=== PATIENT | female | born 1980 | race Caucasian/White ===

== ENCOUNTER 2016-10-23 11:39 | Emergency (ER) | payer MEDICAID ==
[~2016-10-23] VITALS: Wt 81.0 kg
[~2016-10-23 11:39] MED LIST: CIPR500T4 PO; DICY10CA60 PO; METR500T PO; ONDA4TAB14 PO; RANI150T9 PO
[2016-10-23] MEDS ORDERED: METHYLPREDNISOLONE 125 MG INJ IM ONE (13:00)
[2016-10-23] MEDS ORDERED: FAMOTIDINE 20 MG TAB PO ONE (13:00)
[2016-10-23] MEDS ORDERED: DIPHENHYDRAMINE 25 MG CAP PO ONE (13:00)
[2016-10-23] MEDS ORDERED: PRED20TA PO (13:46)
[2016-10-23] MEDS ORDERED: BEN25 PO (13:46)
--- NOTE | 2016-10-23 14:20 | ERD ---
ER Documentation Chief Complaint Date/Time DATE: 10/23/16 TIME: 14:19 Chief Complaint RASH X4 DAYS, ITCHING, NO SOB HPI 35 year-old female patient with no significant past medical history presents to the ED complaining of a rash that started 4 days ago. States that it has been itching but denies knowing the cause. States that she has been scratching. States that it comes and goes. Denies any use of soaps, detergents, creams. Denies any exposure to pets or insects. Denies any abdominal pain, nausea, vomiting, diarrhea, shortness of breath, painful rash. Denies any shortness of breath, wheezing, lip swelling, tongue swelling. Denies others having the same rash. ROS All systems reviewed and are negative except as per history of present illness. Medications Home Meds Active Scripts Diphenhydramine Hcl* (Benadryl*) 25 Mg Cap, 25 MG PO Q6, #30 CAP Prov:ARGENIS PEREZ PA-C 10/23/16 Prednisone* (Prednisone*) 20 Mg Tab, 40 MG PO DAILY for 4 Days, TAB Prov:ARGENIS PEREZ PA-C 10/23/16 Ranitidine Hcl* (Zantac*) 150 Mg Tablet, 150 MG PO BID Y for EPIGASTRIC PAIN, # 30 TAB Prov:LI RAMSAY PA-C 02/29/16 Ondansetron (Ondansetron Odt) 4 Mg Tab.rapdis, 4 MG PO Q6H Y for NAUSEA AND/OR VOMITING, #10 TAB Prov:ROXY CASTILLO 02/13/16 Dicyclomine Hcl* (Bentyl*) 10 Mg Capsule, 10 MG PO QID, #20 CAP Prov:ROXY CASTILLO SMichael 02/13/16 Metronidazole* (Flagyl*) 500 Mg Tablet, 500 MG PO TID for 7 Days, TAB Prov:ROXY CASTILLO 02/13/16 Ciprofloxacin Hcl* (Ciprofloxacin Hcl*) 500 Mg Tablet, 500 MG PO BID for 7 Days , TAB Prov:ROXY CASTILLO S. 02/13/16 Allergies Allergies: Coded Allergies: No Known Allergy (Unverified , 02/13/16) PMhx/Soc History of Surgery: Yes (CHOLECYSTECTOMY 2009) Anesthesia Reaction: No Hx Neurological Disorder: No Hx Respiratory Disorders: No Hx Cardiac Disorders: No Hx Psychiatric Problems: No Hx Miscellaneous Medical Probl: No Hx Alcohol Use: Yes Hx Substance Use: No Hx Tobacco Use: No Physical Exam Vitals Vital Signs Date Time Temp Pulse Resp B/P Pulse Ox O2 Delivery O2 Flow Rate FiO2 10/23/16 11:49 97.3 82 17 109/71 98 Physical Exam Const: [id number], well-nourished. In no acute distress. Head: Atraumatic, normocephalic Eyes: Normal Conjunctiva without injection. No purulent discharge. PERRL. EOMI ENT: Normal external ear. Ear canal without erythema. Tympanic membrane pearly meraz without effusion or bulging. Nasal canal clear with normal turbinates. Moist oropharynx without tonsillar exudates. Non-erythematous pharynx. Uvula midline. No drooling. No trismus. Neck: Full range of motion. No meningismus. No cervical lymphadenopathy. Resp: Clear to auscultation bilaterally. No wheezing, rhonchi, rales, or crackles. No accessory muscle use. No retractions. Cardio: Regular rate and rhythm. No murmurs, rubs or gallops. Abd: Soft, non tender, non distended. Normal bowel sounds. No palpable masses. No rebound tenderness. No guarding. Skin: No petechiae, purpura. Diffuse erythematous blanching wheals noted diffusely all over the body. No fluctuance. No induration. No bleeding noted. Back: No midline tenderness. No CVA tenderness. Ext: No cyanosis, or edema. Neur: Awake and alert. Psych: Normal Mood and Affect Results 24 hrs Current Medications Medications (Trade) Dose Ordered Sig/Marlene Route PRN Reason Start Time Stop Time Status Last Admin Dose Admin Methylprednisolone Sodium Succinate (Solu-Medrol) 125 mg ONCE ONCE IM 10/23/16 13:00 10/23/16 13:01 DC 10/23/16 12:55 Diphenhydramine HCl (Benadryl) 25 mg ONCE ONCE PO 10/23/16 13:00 10/23/16 13:01 DC 10/23/16 12:55 Famotidine (Pepcid) 20 mg ONCE ONCE PO 10/23/16 13:00 10/23/16 13:01 DC 5/4/17 12:55 Procedures/MDM This is a 35-year-old female patient with no significant past medical history presents to the ED complaining of a rash (urticaria) likely due to allergic reaction. Patient is afebrile nontoxic appearing. Patient has normal vital signs. Patient was treated here in the ED with Solu-Medrol, Benadryl, Famotidine with improvement of her symptoms. No lip swelling or tongue swelling. Low suspicion for anaphylaxis. Other differential diagnosis considered include but is not limited to allergic contact dermatitis, insect bites, eczema, tinea infection, psoriasis. Low suspicion for scabies, SJS/TEN, erythema multiforme, sepsis, cellulitis, necrotizing fascitis, gangrene, meningococcemia or other emergent conditions. Discharge medications: Prednisone, Benadryl Follow up with primary care physician in 1-2 days. Instructed patient to return to the ED sooner for any worsening symptoms. Patient's questions were answered. Patient understood and agreed with discharge plan. Patient discharged stable. Departure Diagnosis: Primary Impression: Rash and other nonspecific skin eruption Condition: Stable Patient Instructions: Allergic Reaction, Other (General), Hives Referrals: [facility] Usted se oseguera hecho un examen mdico de control que le indica que no est en shankar condicin que requiera tratamiento urgente en el Departamento de Emergencia. Un estudio ms profundo y el tratamiento de bello condicin pueden esperar sin ningn riesgo hasta que usted sea atendida/o en el consultorio de bello mdico o shankar cl yordy. Es responsabilidad suya arreglar shankar laura para el seguimiento del asha. MANEJO DE CONDICIONES NO URGENTES EN EL FUTURO 1) Si usted tiene un mdico de atencin primaria: Usted debera llamar a bello mdico de atencin primaria antes de venir al departamento de emergencia. Despus de las horas de consultorio, bello doctor o bello asociado/a est disponible por telfono. El mdico o enfermero de kat en el servicio telefnico puede asesorarle por milton medio para atender el problema, o asha contrario se puede programar shankar laura. 2) Si usted no tiene un mdico de atencin primaria: Llame al mdico o clnica de referencia que aparece abajo rehana las horas de consultorio para hacer shankar laura para que le vean. CLINICAS: [facility] [phone] [facility] [phone] [facility] [phone] [facility] [place] [phone] [facility]. [place] [address] [phone] [facility] [phone] [address] [facility]. [facility] () Usted se oseguera hecho un examen mdico de control que le indica que no est en shankar condicin que requiera tratamiento urgente en el Departamento de Emergencia. Un estudio ms profundo y el tratamiento de bello condicin pueden esperar sin ningn riesgo hasta que usted sea atendida/o en el consultorio de bello mdico o shankar cl yordy. Es responsabilidad suya arreglar shankar laura para el seguimiento del asha. MANEJO DE CONDICIONES NO URGENTES EN EL FUTURO 1) Si usted tiene un mdico de atencin primaria: Usted debera llamar a bello mdico de atencin primaria antes de venir al departamento de emergencia. Despus de las horas de consultorio, bello doctor o bello asociado/a est disponible por telfono. El mdico o enfermero de kat en el servicio telefnico puede asesorarle por milton medio para atender el problema, o asha contrario se puede programar shankar laura. 2) Si usted no tiene un mdico de atencin primaria: Llame al mdico o condado institucions de referencia que aparece abajo rehana las horas de consultorio para hacer shankar laura para que le vean. SI USTED NO PUEDE PAGAR PARA GRACIE UN MEDICO puede ir a: [facility] [address] [place] [address] [facility] [address] [place] [address] [facility] [address] [place] [address] [address] [facility] [address] [place] [place], [place] [id number] Additional Instructions: Llame al doctor MAANA y keaton shankar LAURA PARA DENTRO DE 1-2 MANUEL para las pruebas de alergia.Dgale a la secretaria que nosotros le instruimos hacer esta laura.Avise o llame si bello condicin se empeora antes de la laura. Regresa aqui si peor o no mejor. ARGENIS PEREZ PA-C October 23, 2016 14:20
== END 2016-10-23 13:45 | disposition home or self-care (01) ==
LOC: FTE 11:39
DX: R21 Rash and other nonspecific skin eruption (principal)
CPT/HCPCS: J2930; Z7610; 96372

== ENCOUNTER 2018-12-17 11:35 | Emergency (ER) | payer MEDICAID ==
[~2018-12-17] VITALS: Ht 162.6 cm; Wt 79.6 kg
[~2018-12-17 11:35] MED LIST changes: +BEN25 PO; +DICY10CA40 PO; -DICY10CA60 PO; +PRED20TA PO; +RANI150T35 PO; -RANI150T9 PO
[2018-12-17 11:44] VITALS: Ht 162.6 cm; Wt 79.6 kg
[2018-12-17] MEDS ORDERED: SOD CHLORIDE 0.9% 500 ML IV STA (12:15)
[2018-12-17] MEDS ORDERED: KETOROLAC 30 MG INJ IV STA (12:15)
[2018-12-17] MEDS ORDERED: BENZONATATE 100 MG CAP PO ONE (12:30)
[2018-12-17] MEDS ORDERED: BENZ-6 PO (13:41)
[2018-12-17] MEDS ORDERED: AZIT250T PO (13:41)
--- NOTE | 2018-12-17 14:40 | ERD ---
ER Documentation Chief Complaint Chief Complaint COUGH ANCHEST PAIN THAT RADIATED TO LEFT ARM WITH NUMBNESS AND PAIN IN EYES HPI This is a very pleasant 38-year-old female has no past medical history. She presents to the emergency department complaining of a productive cough for the past 48 hours. She indicates that she has had intermittent numbness and tingling of her left arm. Contrary to the triage sheet she denies any chest pain or pressure. She had no fevers no shaking no chills. She feels mild shortness of breath is exacerbated whenever she coughs. She does not feel shortness of breath with exertion. She has no swelling of her lower extremities. She denies any calf tenderness. She had no fevers or shaking no chills. She denies any weight loss or night sweats. She had no recent travel or prolonged immobilization and no recent hospitalizations. ROS All systems reviewed and are negative except as per history of present illness. Medications Home Meds Active Scripts Benzonatate* (Tessalon Perle*) 100 Mg Capsule, 100 MG PO Q8H PRN for COUGH, #20 CAP Prov:GRIFFIN SILVERIO MD 12/17/18 Azithromycin* (Zithromax*) 250 Mg Tablet, 250 MG PO .ZPACK DIRECTED, #6 TAB TAKE 500 MG (2 TABS) THE FIRST DAY THEN 250 MG (1 TAB) DAYS 2-5 Prov:GRIFFIN SILVERIO MD 12/17/18 Discontinued Scripts Diphenhydramine Hcl* (Benadryl*) 25 Mg Cap, 25 MG PO Q6, #30 CAP Prov:ARGENIS PEREZ PA-C 10/23/16 Prednisone* (Prednisone*) 20 Mg Tab, 40 MG PO DAILY for 4 Days, TAB Prov:ARGENIS PEREZ PA-C 10/23/16 Ranitidine Hcl* (Zantac*) 150 Mg Tablet, 150 MG PO BID PRN for EPIGASTRIC PAIN, #30 TAB Prov:LI RAMSAY PA-C 02/29/16 Ondansetron (Ondansetron Odt) 4 Mg Tab.rapdis, 4 MG PO Q6H PRN for NAUSEA AND/OR VOMITING, #10 TAB Prov:ROXY CASTILLO 02/13/16 Dicyclomine HCl (Dicyclomine HCl) 10 Mg Capsule, 10 MG PO QID, #20 CAP Prov:ROXY CASTILLO 02/13/16 Metronidazole* (Flagyl*) 500 Mg Tablet, 500 MG PO TID for 7 Days, TAB Prov:ROXY CASTILLO. 02/13/16 Ciprofloxacin Hcl* (Ciprofloxacin Hcl*) 500 Mg Tablet, 500 MG PO BID for 7 Days, TAB Prov:ROXY CASTILLO. 02/13/16 Allergies Allergies: Coded Allergies: No Known Allergy (Unverified , 12/17/18) PMhx/Soc History of Surgery: Yes (CHOLECYSTECTOMY 2009) Anesthesia Reaction: No Hx Neurological Disorder: No Hx Respiratory Disorders: No Hx Cardiac Disorders: No Hx Psychiatric Problems: No Hx Miscellaneous Medical Probl: No Hx Alcohol Use: Yes Hx Substance Use: No Hx Tobacco Use: No Smoking Status: Never smoker Physical Exam Vitals Vital Signs Date Temp Pulse Resp B/P (MAP) Pulse Ox O2 O2 Flow FiO2 Time Delivery Rate 12/17/18 98.4 76 16 129/70 97 11:44 (89) Physical Exam Constitutional:Well-developed. Well-nourished. HEENT:Normocephalic. Atraumatic.Pupils were equal round reactive to light. Moist mucous membranes.No tonsillar exudates. Neck: No nuchal rigidity. No lymphadenopathy. No posterior cervical spine tenderness or step-offs. Respiratory: Not using accessory muscles of respiration.Lungs were clear to auscultation bilaterally. No rhonchi. No rales. Wheezing on end expiration bilaterally Cardiovascular: Regular rate regular rhythm.No murmurs. No rubs were appreciated.S1, S2 normal. Distal pulses are palpable 2+ bilaterally. GI: Abdomen was soft. Nontender. Non Distended. No pulsatile abdominal masses or bruits. No rebound. No guarding. Bowel sounds were present and normal. Muscle skeletal: Full range of motion of both the upper and lower extremities bilaterally.Normal muscle tone.No assymetrical calf tenderness or swelling. Skin: No petechia, no purpura. No lesions on the palms or the soles of the feet. No maculopapular rash. NEURO: Patient was alert, awake, orientated x3.No facial droop. Gait observed and normal with no ataxia.Speech had regular rate and rhythm. No focal neurological deficits. Result Diagram: 12/17/18 1232 12/17/18 1232 Results 24 hrs Laboratory Tests Test 12/17/18 12:32 White Blood Count 8.5 10^3/ul Red Blood Count 4.98 10^6/ul Hemoglobin 14.8 g/dl Hematocrit 43.1 % Mean Corpuscular Volume 86.5 fl Mean Corpuscular Hemoglobin 29.7 pg Mean Corpuscular Hemoglobin Concent 34.3 g/dl Red Cell Distribution Width 12.9 % Platelet Count 259 10^3/UL Mean Platelet Volume 11.1 fl Immature Granulocytes % 0.600 % Neutrophils % 64.6 % Lymphocytes % 25.1 % Monocytes % 7.7 % Eosinophils % 1.6 % Basophils % 0.4 % Nucleated Red Blood Cells % 0.0 /100WBC Immature Granulocytes # 0.050 10^3/ul Neutrophils # 5.5 10^3/ul Lymphocytes # 2.1 10^3/ul Monocytes # 0.7 10^3/ul Eosinophils # 0.1 10^3/ul Basophils # 0.0 10^3/ul Nucleated Red Blood Cells # 0.0 10^3/ul Prothrombin Time 12.9 Sec Prothrombin Time Ratio 1.0 INR International Normalized Ratio 0.96 Activated Partial Thromboplast Time 26.5 Sec Sodium Level 142 mmol/L Potassium Level 4.2 mmol/L Chloride Level 110 mmol/L Carbon Dioxide Level 24 mmol/L Anion Gap 8 Blood Urea Nitrogen 13 mg/dl Creatinine 0.64 mg/dl Est Glomerular Filtrat Rate mL/min > 60 mL/min Glucose Level 100 mg/dl Calcium Level 9.2 mg/dl Total Bilirubin 0.3 mg/dl Direct Bilirubin 0.00 mg/dl Indirect Bilirubin 0.3 mg/dl Aspartate Amino Transf (AST/SGOT) 18 IU/L Alanine Aminotransferase (ALT/SGPT) 23 IU/L Alkaline Phosphatase 85 IU/L Creatine Kinase 78 IU/L Creatine Kinase Index 1.0 Creatinine Kinase MB (Mass) 0.75 ng/ml Troponin I < 0.012 ng/ml B-Type Natriuretic Peptide 94 PG/ML Total Protein 7.5 g/dl Albumin 4.1 g/dl Globulin 3.40 g/dl Albumin/Globulin Ratio 1.20 Current Medications Medications Dose Sig/Marlene Start Time Status Last (Trade) Ordered Route PRN Stop Time Admin Dose Reason Admin Sodium 500 ml @ Q1H STAT 12/17/18 DC 12/17/18 Chloride 500 mls/hr IV 12:15 12:40 12/17/18 13:14 Ketorolac 30 mg ONCE STAT 12/17/18 DC 12/17/18 Tromethamine IV 12:15 12:39 (Toradol) 12/17/18 12:17 Benzonatate 100 mg ONCE ONCE 12/17/18 DC 12/17/18 (Tessalon) PO 12:30 12:39 12/17/18 12:31 Procedures/MDM The patient presented to the emergency department with shortness of breath. My differential diagnosis included but was not limited to upper airway obstruction, CHF, pulmonary embolism, cardiac ischemia, pneumonia, pneumothorax, anemia, drug overdose, pulmonary edema, COPD or asthma. The patient had a chest radiograph which showed no infiltrates no pneumothorax or pleural effusions. 12 Lead EKG tracing ordered and reviewed by myself showed: Normal sinus rhythm of 84 bpm and no arrhythmia. MA interval normal. QRS duration normal. No ST segment elevation No ST segment depression. No changes consistent with acute ischemia. The patient had no risk factors for pulmonary embolism. There is no evidence of congestive heart failure. I felt her symptoms are likely result of acute bronchitis. She was given nebulizer treatments in the emergency department with improvement of her symptoms. She was also given Tessalon Perles. The patient was discharged home in fair condition. They were instructed to return to the emergency department at any time if there was any worsening of their condition. The patient stated they would follow up with their PCP in the next 24-48 hours to initiate a suitable medication regimen under the care of their PCP as well as to allow their PCP to monitor any drug reactions. The patient was discharged home with prescriptions after they gave informed consent to the new medication. They were also fully informed by myself on the adverse effects and adverse drug interactions in order to provide adequate safeguards to prevent possible adverse reactions to m edications. Departure Diagnosis: Primary Impression: Bronchitis Condition: Fair Patient Instructions: Bronchitis With Wheezing (Adult) GRIFFIN SILVERIO MD Dec 17, 2018 14:40
[2018-12-17 15:04] VITALS: BP 116/72; PULSE 84; RESP 18
== END 2018-12-17 15:06 | disposition home or self-care (01) ==
LOC: E/R 11:35
DX: J40 Bronchitis, not specified as acute or chronic (principal)
CPT/HCPCS: 36415; 71045; 80053; 82550; 82553; 83880; 84484; 85025; 85610; 85730; 93005; 96374; J1885; J7040; Z7502; Z7610